=== PATIENT | female | born 1990 | race Caucasian/White ===

== ENCOUNTER 2018-05-22 12:42 | Emergency (ER) | payer OTHER ==
[~2018-05-22] VITALS: Ht 167.6 cm; Wt 76.2 kg
[2018-05-22 12:54] VITALS: Ht 167.6 cm; Wt 76.2 kg
[2018-05-22 15:11] LABS: CALCIUM 8.6 mg/dL (8.5-10.1); CHLORIDE SERUM 106 mmol/L (98-107); CREATININE SERUM 0.7 mg/dL (0.6-1.0); GFR1 > 60 mL/min; GLUCOSE SERUM 92 mg/dL (74-106); POTASSIUM SERUM 4.2 mmol/L (3.5-5.1); SODIUM SERUM 140 mmol/L (136-145)
[2018-05-22 15:15] LABS: ALBUMIN 3.5 g/dL (3.4-5.0); ALKALINE PHOSPHATASE 73 U/L (46-116); ALT/SGPT 17 U/L (14-59); AST/SGOT 12 U/L (15-37); BILIRUBIN TOTAL 0.3 mg/dL (0.20-1.00); LIPASE 201 IU/L (73-393); TOTAL PROTEIN, SERUM 7.4 g/dL (6.4-8.2)
[2018-05-22 16:19] VITALS: BP 112/71
[2018-05-22 16:45] LABS: BASOPHIL % 0.3 % (0-2); PLATELET COUNT 316 x10^3mcL (130-400); RED CELL DISTRIBUTION WIDTH 14.3 % (11.5-14.5)
== END 2018-05-22 17:20 | disposition home or self-care (01) ==
LOC: ED 12:42
PROVIDERS: Emergency Medicine
DX: K29.70 Gastritis, unspecified, without bleeding (principal)
CPT/HCPCS: 36415; Q0092; Q0162

== ENCOUNTER 2021-01-01 23:49 | Inpatient (IN) | payer OTHER ==
[~2021-01-01] VITALS: Ht 165.1 cm; Wt 67.2 kg
[2021-01-02] VITALS: Ht 165.1 cm; Wt 67.2 kg
[2021-01-02 01:27] LABS: UA SPECIFIC GRAVITY >=1.030 (1.005-1.035); microscopic required? YES; urine erythrocyte 3+ (NEGATIVE)
[2021-01-02 01:41] LABS: AMPHETAMINE QUAL UR NONE DETECTED (See below)
[2021-01-02] MEDS ORDERED: TRAZODONE50 M1 PO (01:53)
[2021-01-02] MEDS ORDERED: RISPERDAL0.5 MG PO (01:53)
[2021-01-02] MEDS ORDERED: LEXAPRO20 MG PO (01:54)
[2021-01-02 01:59] LABS: BASOPHIL % 0.3 % (0.2-1.3); PLATELET COUNT 304 x10^3mcL (179-408); RED CELL DISTRIBUTION WIDTH 13.7 % (12.3-17.7)
[2021-01-02 02:03] LABS: CALCIUM 8.6 mg/dL (8.5-10.1); CARBON DIOXIDE 27.7 mmol/L (21-32); CHLORIDE SERUM 104 mmol/L (98-107); CREATININE SERUM 0.8 mg/dL (0.6-1.0); GFR1 > 60 mL/min; GLUCOSE SERUM 92 mg/dL (74-106); POTASSIUM SERUM 3.9 mmol/L (3.5-5.1); SODIUM SERUM 142 mmol/L (136-145)
[2021-01-02 02:16] LABS: ALBUMIN 3.6 g/dL (3.4-5.0); ALKALINE PHOSPHATASE 197 U/L (46-116); ALT/SGPT 33 U/L (14-59); AST/SGOT 18 U/L (15-37); BILIRUBIN TOTAL 0.39 mg/dL (0.20-1.00); FREE T4 1.16 ng/dL (0.76-1.46); TOTAL PROTEIN, SERUM 7.5 g/dL (6.4-8.2)
[2021-01-03 13:25] VITALS: BP 106/71
[2021-01-03 19:11] VITALS: BP 108/60
[2021-01-03 20:08] VITALS: BP 117/85
[2021-01-04 06:41] VITALS: BP 128/77
[2021-01-04 09:11] VITALS: BP 143/83
[2021-01-04] MEDS ORDERED: RIS1 PO (09:25)
[2021-01-04 13:19] VITALS: BP 119/85
[2021-01-04 20:22] VITALS: BP 130/70
[2021-01-05] VITALS (8 sets, daily range): BP systolic 107–119; BP diastolic 65–79
[2021-01-06 06:25] VITALS: BP 109/73
[2021-01-06 09:10] VITALS: BP 102/64
[2021-01-06 14:05] VITALS: BP 116/80
[2021-01-06 18:01] VITALS: BP 110/77
[2021-01-06 21:39] VITALS: BP 122/78
[2021-01-07 05:52] VITALS: BP 103/66
[2021-01-07 08:35] VITALS: BP 101/67
[2021-01-07 11:07] VITALS: BP 113/74
[2021-01-07 18:57] VITALS: BP 107/70
[2021-01-07 20:03] VITALS: BP 112/72
[2021-01-08 05:32] VITALS: BP 110/65
[2021-01-08 08:07] VITALS: BP 109/68
[2021-01-08 12:09] VITALS: BP 123/78
[2021-01-08 17:15] VITALS: BP 112/77
== END 2021-01-08 22:37 | DRG 351 ==
LOC: ED 23:49 → MU 01-03 10:31
PROVIDERS: Emergency Medicine; ADMIT Family Medicine; ATTEND Family Medicine
DX: M25.471 Effusion, right ankle (principal); F20.9 Schizophrenia, unspecified; I10 Essential (primary) hypertension; F29 Unspecified psychosis not due to a substance or known physiological condition; Z20.822 Contact with and (suspected) exposure to COVID-19; F32.9 Major depressive disorder, single episode, unspecified; M25.571 Pain in right ankle and joints of right foot; Z59.0 Homelessness; Z79.899 Other long term (current) drug therapy
CPT/HCPCS: 84439; G0378; J2060; U0003